=== PATIENT | male | born 1960 | race Two or more races ===

== ENCOUNTER 2018-07-28 17:48 | Inpatient (IN) | payer MEDICARE, MEDICAID ==
[~2018-07-28] VITALS: Ht 167.6 cm; Wt 77.1 kg
[2018-07-28] MEDS ORDERED: CLOZ100T32 PO (18:14)
--- NOTE | 2018-07-28 18:17 | NUR ---
hospital dinner tray provided for pt.
[2018-07-28] MEDS ORDERED: POTASSIUM CHLORIDE 20 MEQ TAB.PRT.SR ONE (18:27)
[2018-07-28] MEDS ORDERED: POTASSIUM CHLORIDE 20 MEQ TAB.PRT.SR PO ONE (18:30)
--- NOTE | 2018-07-28 18:50 | NUR ---
pt transfered to mhu in stable condition. pt finished tray with good apetite
[2018-07-28] MEDS ORDERED: MAGNESIUM HYDROXIDE 30 ML LIQUID UDC PO PRN (20:00)
[2018-07-28] MEDS ORDERED: LORAZEPAM 1 MG TABLET PO PRN (20:00)
[2018-07-28] MEDS ORDERED: TEMAZEPAM 7.5 MG CAPSULE PO PRN (20:00)
[2018-07-28 20:05] VITALS: BP 135/87
--- NOTE | 2018-07-28 21:00 | NUR ---
AT APPROX 1900, ADMITTED 58 YEARS OLD MALE TO [facility] ON A 5150 HOLD FOR GD. PATIENT WAS BROUGHT IN BY HIS COUSIN TO [facility] ER UNIT WHERE HE WAS PLACED ON HOLD AND MEDICALLY CLEARED. PER HOLD,PATIENT WAS AGITATED, NOT TAKING HIS MEDICATION X 2 WEEKS, PARANOID AND DELUSIONAL. HOLD ALSO STATED THAT HE WAS DISORGANIZED PARANOID AND INTERNALLY PREOCCUPIED. PATIENT HAS NO PLAN OF SELF-CARE. HOLD STARTED ON 07/28/18 AT 0045 AND WILL END ON 07/31/18 AT 0045. FACE TO FACE ASSESSMENT WAS DONE, ADVISEMENT WAS GIVEN TO PATIENT. PATIENT WAS CHECKED FOR CONTRABANDS. V/S WERE ALL WNL. UPON INTERVIEW, PATIENT NOTED A/O X 3. HE IS ABLE TO AMBULATE WITH STEADY GAIT AND ABLE TO MAKE HIS NEEDS KNOWN. HE IS NOTED GUARDED, RAMBLING SPEECH. HE STATED, "I AM HERE BECAUSE THEY SAY I CAN'T PROVIDED FOR MYSELF." HE ALSO STATED THAT HE DOES NOT LIVE WITH HIS COUSIN, BUT THAT HE LIVES WITH HIS PARENTS. HE DENIES SI.AH.VH.HI. HE DENIES TAKING ALCOHOL AND ILLEGAL DRUGS. HE DENIES SMOKING. HE DENIES HAVING ANY MEDICAL PROBLEMS. SKIN ASSESSMENT WAS SOMEWHAT LIMITED D/T PATIENT'S POOR COMPLIANT. HOWEVER, NO SKIN PROBLEMS WERE IDENTIFY AT THIS TIME. PATIENT WAS EXPLAINED UNIT RULES, ROOMMATE. PATIENT WAS REASSURED OF HIS SAFETY. HE WAS ENCOURAGED TO VERBALIZED HIS THOUGHT AND CONCERNS. PATIENT IS MONITORED CLOSELY FOR CHANGES IN HIS BEHAVIOR. HE IS UNDER THE CARE OF DR. DASILVA. PER PATIENT'S AUTHORIZATION, HIS BROTHER IN LAW WAS NOTIFY OR HIS ADMISSION TO MHU IN [facility].
[2018-07-29 00:29] VITALS: BP 135/87
[2018-07-29 07:21] LABS: CREATININE 1.2 mg/dL (0.6-1.3); POTASSIUM 3.5 mmol/L (3.5-5.1)
[2018-07-29 07:30] VITALS: BP 101/61
[2018-07-29 16:06] VITALS: BP 98/63
[2018-07-29] MEDS ORDERED: OXCARBAZEPINE 300 MG TABLET PO SCH (17:00)
[2018-07-29] MEDS: CLOZAPINE 25 MG TABLET PO SCH ×2 (18:04→20:37)
--- NOTE | 2018-07-29 19:50 | NUR ---
RECEIVED PATIENT IN HIS ROOM IN BED ASLEEP BUT EASILY AROUSABLE. HE IS NOTED CALM AND PLEASANT UPON APPROACHED. POOR HISTORIAN, POOR INSIGHT NOTED INTO THE REASON FOR HIS [facility]. V.S STABLE AT THIS TIME. PT WAS REASSURED FOR HIS SAFETY AND ENCOURAGE TO VERBALIZED FEELINGS. WILL CONTINUE TO MONITOR.
[2018-07-29 20:45] VITALS: BP 106/66
[2018-07-30 07:22] LABS: BASOPHILS % (AUTO) 0.3 % (0.0-2.0); EOSINOPHILS % (AUTO) 0.2 % (0.0-7.0); HEMATOCRIT 37.6 % (36.7-47.1); HEMOGLOBIN 12.9 g/dL (12.5-16.3); LYMPHOCYTES # (AUTO) 1.7 K/uL (20.0-40.0); LYMPHOCYTES % (AUTO) 33.3 % (20.5-51.5); MEAN CORPUSCULAR HGB CONC 34 g/dL (32.5-36.3); MEAN CORPUSCULAR VOLUME 81.4 fL (73.0-96.2); MONOCYTES # (AUTO) 0.5 K/uL (2.0-10.0); MONOCYTES % (AUTO) 9.9 % (0.0-11.0); NEUTROPHILS # (AUTO) 2.9 K/uL (1.8-8.9); NEUTROPHILS % (AUTO) 56.3 % (38.5-71.5); PLATELET COUNT (AUTO) 204 K/uL (152-348); RED BLOOD CELL COUNT(AUTO) 4.62 MIL/uL (4.06-5.63); WHITE BLOOD COUNT (AUTO) 5.1 K/uL (3.6-10.2)
[2018-07-30 07:30] VITALS: BP 119/85
[2018-07-30] MEDS: CLOZAPINE 25 MG TABLET PO SCH ×3 (09:46→20:22)
--- NOTE | 2018-07-30 11:29 | NUR ---
Initial Discharge Instructions: Patient has been living with his cousin for the past 6 months [[address], [place] [address]; [phone]]. Per pt, he was living at a [facility] prior to coming to the hospital. Spoke with pt's cousin, Karyna ([phone]) and Juan R ([phone]) who state they are willing to have patient return back home with them when the patient is ready for discharge. SW will continue to collaborate with pt, family, and MD regarding most appropriate discharge plans for this patient. SW will form a safe and proper discharge plan.
[2018-07-30] MEDS: MAG HYDROX/AL HYDROX/SIMETH 30 ML LIQUID UDC PO PRN ×2 (12:18→23:56)
[2018-07-30 15:00] VITALS: BP 116/53
[2018-07-30 20:36] VITALS: BP 118/67
--- NOTE | 2018-07-31 06:04 | NUR ---
GPS: REMAIN CALM AND COOPERATIVE WITH MEDICATIONS AND CARE. TOOK SHOWERED THIS MORNING. C/O ABDOMINAL DISCOMFORT LAST NIGHT.MAALOX 30 ML PO GIVEN @ 23:56 PM AND EFFECTIVE. SLEPT 7.5 HRS THROUGH THE NIGHT. RESTING IN BED COMFORTABLY. NO AGGRESSIVE BEHAVIOR NOTED. CONTINUE MONITORING FOR SAFETY.
[2018-07-31 08:06] VITALS: BP 131/91
[2018-07-31 08:20] LABS: BASOPHILS % (AUTO) 0.3 % (0.0-2.0); EOSINOPHILS % (AUTO) 0.1 % (0.0-7.0); HEMOGLOBIN 12.7 g/dL (12.5-16.3); LYMPHOCYTES # (AUTO) 1.7 K/uL (20.0-40.0); LYMPHOCYTES % (AUTO) 36.1 % (20.5-51.5); MEAN CORPUSCULAR HEMOGLOBIN 28.1 uug (23.8-33.4); MEAN CORPUSCULAR HGB CONC 34 g/dL (32.5-36.3); MEAN CORPUSCULAR VOLUME 81.9 fL (73.0-96.2); MONOCYTES # (AUTO) 0.5 K/uL (2.0-10.0); MONOCYTES % (AUTO) 10.4 % (0.0-11.0); NEUTROPHILS # (AUTO) 2.5 K/uL (1.8-8.9); NEUTROPHILS % (AUTO) 53.1 % (38.5-71.5); PLATELET COUNT (AUTO) 205 K/uL (152-348); RED BLOOD CELL COUNT(AUTO) 4.52 MIL/uL (4.06-5.63); WHITE BLOOD COUNT (AUTO) 4.7 K/uL (3.6-10.2)
[2018-07-31] MEDS: CLOZAPINE 25 MG TABLET PO SCH ×3 (08:57→20:14)
[2018-07-31 15:58] VITALS: BP 115/71
[2018-07-31] MEDS ORDERED: LORAZEPAM 0.5 MG TABLET PO PRN (16:00)
[2018-07-31 20:00] VITALS: BP 109/74
--- NOTE | 2018-07-31 22:00 | NUR ---
PATIENT PRESENTS CALM AND COOPERATIVE WITH MEDICATION REGIMENT. NOTED WITHDRAWN, LOW MOOD, BLUNTED AFFECT. PT WAS ASSESSED FOR SAFETY, ENCOURAGE TO VERBALIZED FEELINGS. V/S STABLE. WBC WNL. WILL CONTINUE TO MONITOR
[2018-08-01] MEDS: PANTOPRAZOLE SODIUM 40 MG TABLET.DR PO SCH (06:35)
[2018-08-01 06:39] LABS: BASOPHILS % (AUTO) 0.1 % (0.0-2.0); EOSINOPHILS % (AUTO) 0.2 % (0.0-7.0); HEMATOCRIT 37.6 % (36.7-47.1); HEMOGLOBIN 13.2 g/dL (12.5-16.3); MEAN CORPUSCULAR HEMOGLOBIN 28.6 uug (23.8-33.4); MEAN CORPUSCULAR HGB CONC 35 g/dL (32.5-36.3); MEAN CORPUSCULAR VOLUME 81.7 fL (73.0-96.2); MONOCYTES # (AUTO) 0.4 K/uL (2.0-10.0); MONOCYTES % (AUTO) 9.1 % (0.0-11.0); NEUTROPHILS # (AUTO) 2.5 K/uL (1.8-8.9); NEUTROPHILS % (AUTO) 50.6 % (38.5-71.5); PLATELET COUNT (AUTO) 215 K/uL (152-348); WHITE BLOOD COUNT (AUTO) 4.9 K/uL (3.6-10.2)
[2018-08-01 07:30] VITALS: BP 131/91
[2018-08-01] MEDS: CLOZAPINE 25 MG TABLET PO SCH ×3 (09:02→20:12)
[2018-08-01 15:53] VITALS: BP 126/74
[2018-08-01 20:00] VITALS: BP 100/65
--- NOTE | 2018-08-01 21:30 | NUR ---
RECEIVED PATIENT IN BED WITH SHEETS PULLED OVER THE HEAD.HE WAS HOWEVER PLEASANT UPON APPROACH.NOTED WITH LOW MOOD AND BLUNTED EFFECT.ALSO RAMBLING BUT WHEN ASKED WHAT HE'S TALKING ABOUT HE SAYS 'NOTHING'.HE TOOK HIS MEDS.HE DENIES PAIN OR DISCOMFORT. WILL CONTINUE TO MONITOR.
[2018-08-02] MEDS: PANTOPRAZOLE SODIUM 40 MG TABLET.DR PO SCH (06:37)
--- NOTE | 2018-08-02 06:49 | NUR ---
PATIENT HAD A GOOD NIGHT SLEEP.SLEPT APPROX.9;30HRS.AM MEDS TAKEN.
[2018-08-02 07:04] LABS: BASOPHILS % (AUTO) 0.5 % (0.0-2.0); EOSINOPHILS % (AUTO) 0.1 % (0.0-7.0); HEMATOCRIT 37.5 % (36.7-47.1); HEMOGLOBIN 13.2 g/dL (12.5-16.3); LYMPHOCYTES # (AUTO) 1.8 K/uL (20.0-40.0); LYMPHOCYTES % (AUTO) 37.3 % (20.5-51.5); MEAN CORPUSCULAR HEMOGLOBIN 28.4 uug (23.8-33.4); MEAN CORPUSCULAR HGB CONC 35 g/dL (32.5-36.3); MEAN CORPUSCULAR VOLUME 80.4 fL (73.0-96.2); MONOCYTES # (AUTO) 0.5 K/uL (2.0-10.0); MONOCYTES % (AUTO) 9.5 % (0.0-11.0); NEUTROPHILS # (AUTO) 2.6 K/uL (1.8-8.9); NEUTROPHILS % (AUTO) 52.6 % (38.5-71.5); PLATELET COUNT (AUTO) 218 K/uL (152-348); RED BLOOD CELL COUNT(AUTO) 4.67 MIL/uL (4.06-5.63); WHITE BLOOD COUNT (AUTO) 4.9 K/uL (3.6-10.2)
[2018-08-02 07:48] VITALS: BP 104/63
[2018-08-02] MEDS: CLOZAPINE 25 MG TABLET PO SCH ×2 (08:13→16:40)
[2018-08-02 16:59] VITALS: BP 103/64
[2018-08-02 20:17] VITALS: BP 138/78
[2018-08-02] MEDS ORDERED: CLOZAPINE 25 MG TABLET PO SCH (21:00)
--- NOTE | 2018-08-03 05:51 | NUR ---
Received Pt in bed sleeping, arouses easily. A+Ox3, compliant with medications, cooperative with staff direction. Denies SI/HI and denies AH/VH, but appears internally preoccupied. Guarded with personal information, gives minimal disclosure, presents with constricted/blunted affect. Pt is isolative, seclusive to his room, and withdrawn to himself. Denies SI/HI/AH/VH. Refused AM shower. VS stable, denies pain, in no acute physical distress.
[2018-08-03] MEDS: PANTOPRAZOLE SODIUM 40 MG TABLET.DR PO SCH (06:17)
[2018-08-03 07:15] LABS: BASOPHILS % (AUTO) 0.3 % (0.0-2.0); EOSINOPHILS % (AUTO) 0.1 % (0.0-7.0); HEMATOCRIT 39.1 % (36.7-47.1); HEMOGLOBIN 13.6 g/dL (12.5-16.3); LYMPHOCYTES # (AUTO) 1.9 K/uL (20.0-40.0); LYMPHOCYTES % (AUTO) 34.7 % (20.5-51.5); MEAN CORPUSCULAR HEMOGLOBIN 28.2 uug (23.8-33.4); MEAN CORPUSCULAR HGB CONC 35 g/dL (32.5-36.3); MEAN CORPUSCULAR VOLUME 81.3 fL (73.0-96.2); MONOCYTES # (AUTO) 0.5 K/uL (2.0-10.0); MONOCYTES % (AUTO) 9.2 % (0.0-11.0); NEUTROPHILS % (AUTO) 55.7 % (38.5-71.5); PLATELET COUNT (AUTO) 233 K/uL (152-348); RED BLOOD CELL COUNT(AUTO) 4.81 MIL/uL (4.06-5.63); WHITE BLOOD COUNT (AUTO) 5.4 K/uL (3.6-10.2)
[2018-08-03 07:30] VITALS: BP 123/74
[2018-08-03] MEDS: CLOZAPINE 25 MG TABLET PO SCH ×2 (08:48→17:05)
--- NOTE | 2018-08-03 13:37 | NUR ---
Discharge planning: dining service worker called and spoke with patient cousin, Karyna [[phone]], regarding conservatorship paperwork. Per Karyna, she states she has probate conservatorship, but cannot locate the paperwork to fax. dining service worker explained that having the paperwork is important as it is a legal document and gives her the right to make decisions on behalf of patient. Karyna was accepting of information and states she will try and find it.
[2018-08-03 16:00] VITALS: BP 145/97
--- NOTE | 2018-08-03 19:30 | NUR ---
Received Pt in chair, sitting near nurses' station. A+Ox3, compliant with medications, cooperative with staff direction. Denies SI/HI and denies AH/VH, but appears internally preoccupied by talking to self, and bizzare behavior. Presents with constricted/blunted affect. Pt is visible on unit but withdrawn to himself. Endorses AH. V/S stable, denies pain, in no acute physical distress. RN to continue to monitor for safety.
[2018-08-03 20:10] VITALS: BP 130/97
[2018-08-03] MEDS ORDERED: CLOZAPINE 25 MG TABLET PO SCH (21:00)
[2018-08-04] MEDS: PANTOPRAZOLE SODIUM 40 MG TABLET.DR PO SCH (06:06)
[2018-08-04 07:30] VITALS: BP 129/91
[2018-08-04 07:34] LABS: BASOPHILS % (AUTO) 0.3 % (0.0-2.0); EOSINOPHILS % (AUTO) 0.3 % (0.0-7.0); HEMOGLOBIN 13.3 g/dL (12.5-16.3); LYMPHOCYTES # (AUTO) 1.8 K/uL (20.0-40.0); LYMPHOCYTES % (AUTO) 38.1 % (20.5-51.5); MEAN CORPUSCULAR HEMOGLOBIN 28.1 uug (23.8-33.4); MEAN CORPUSCULAR HGB CONC 35 g/dL (32.5-36.3); MONOCYTES # (AUTO) 0.5 K/uL (2.0-10.0); MONOCYTES % (AUTO) 11.2 % (0.0-11.0); NEUTROPHILS # (AUTO) 2.3 K/uL (1.8-8.9); NEUTROPHILS % (AUTO) 50.1 % (38.5-71.5); PLATELET COUNT (AUTO) 232 K/uL (152-348); RED BLOOD CELL COUNT(AUTO) 4.75 MIL/uL (4.06-5.63); WHITE BLOOD COUNT (AUTO) 4.7 K/uL (3.6-10.2)
[2018-08-04] MEDS: CLOZAPINE 25 MG TABLET PO SCH ×3 (08:44→20:04)
--- NOTE | 2018-08-04 12:07 | NUR ---
Activity group note: Patients were asked to answer the question of "What is one thing you would change about yourself and why? Subjective: "Cleaning my ears changed me" Objective: Patient sat in group and appeared to be responding to internal stimuli. Patient witnessed to talk to self. Assessment: Patient needs help with boundary setting and staying on topic. Plan: Encourage group attendance as scheduled. sawmill production worker will help patient to control inhibitions when talking to self by providing patient with appropriate coping skills.
[2018-08-04 16:00] VITALS: BP 122/88
[2018-08-04 20:00] VITALS: BP 148/95
[2018-08-05] MEDS: PANTOPRAZOLE SODIUM 40 MG TABLET.DR PO SCH (06:17)
[2018-08-05 07:30] VITALS: BP 118/85
[2018-08-05] MEDS: CLOZAPINE 25 MG TABLET PO SCH ×3 (08:51→21:06)
[2018-08-05 09:47] LABS: BASOPHILS % (AUTO) 0.6 % (0.0-2.0); EOSINOPHILS % (AUTO) 0.3 % (0.0-7.0); HEMATOCRIT 39.3 % (36.7-47.1); HEMOGLOBIN 13.6 g/dL (12.5-16.3); LYMPHOCYTES # (AUTO) 1.1 K/uL (20.0-40.0); LYMPHOCYTES % (AUTO) 33.1 % (20.5-51.5); MEAN CORPUSCULAR HEMOGLOBIN 28.2 uug (23.8-33.4); MEAN CORPUSCULAR HGB CONC 35 g/dL (32.5-36.3); MEAN CORPUSCULAR VOLUME 81.2 fL (73.0-96.2); MONOCYTES # (AUTO) 0.4 K/uL (2.0-10.0); MONOCYTES % (AUTO) 11.5 % (0.0-11.0); NEUTROPHILS # (AUTO) 1.8 K/uL (1.8-8.9); NEUTROPHILS % (AUTO) 54.5 % (38.5-71.5); PLATELET COUNT (AUTO) 232 K/uL (152-348); RED BLOOD CELL COUNT(AUTO) 4.84 MIL/uL (4.06-5.63); WHITE BLOOD COUNT (AUTO) 3.4 K/uL (3.6-10.2)
--- NOTE | 2018-08-05 13:53 | NUR ---
Firearms Report: ANIL completed and submitted [employer] report for 5250 GD certification.
--- NOTE | 2018-08-05 15:08 | NUR ---
Gps/Yarn Salvager- Attending his group therapy, participating fairly well in his activities. Compliant with medications, noted to be responding to to internal stimuli, noted mumbling from time to time.No aggressive behavior noted , making his needs known to the staff.
[2018-08-05 16:00] VITALS: BP 111/75
[2018-08-05 20:00] VITALS: BP 120/81
[2018-08-06] MEDS: PANTOPRAZOLE SODIUM 40 MG TABLET.DR PO SCH (06:43)
[2018-08-06 07:02] LABS: BASOPHILS % (AUTO) 0.3 % (0.0-2.0); EOSINOPHILS % (AUTO) 0.2 % (0.0-7.0); HEMATOCRIT 37.4 % (36.7-47.1); HEMOGLOBIN 13.2 g/dL (12.5-16.3); LYMPHOCYTES # (AUTO) 1.8 K/uL (20.0-40.0); LYMPHOCYTES % (AUTO) 42.1 % (20.5-51.5); MEAN CORPUSCULAR HEMOGLOBIN 28.4 uug (23.8-33.4); MEAN CORPUSCULAR HGB CONC 35 g/dL (32.5-36.3); MEAN CORPUSCULAR VOLUME 80.4 fL (73.0-96.2); MONOCYTES # (AUTO) 0.6 K/uL (2.0-10.0); MONOCYTES % (AUTO) 13.4 % (0.0-11.0); NEUTROPHILS # (AUTO) 1.9 K/uL (1.8-8.9); PLATELET COUNT (AUTO) 230 K/uL (152-348); RED BLOOD CELL COUNT(AUTO) 4.65 MIL/uL (4.06-5.63); WHITE BLOOD COUNT (AUTO) 4.4 K/uL (3.6-10.2)
[2018-08-06 07:30] VITALS: BP 101/65
[2018-08-06] MEDS: CLOZAPINE 25 MG TABLET PO SCH ×3 (08:23→21:15)
[2018-08-06 16:41] VITALS: BP 107/61
[2018-08-06 20:18] VITALS: BP 114/73
--- NOTE | 2018-08-06 22:30 | NUR ---
RECEIVED PATIENT IN BED WITH SHEETS PULLED ALL THE WAY OVER HIS HEAD.HE WAS HOWEVER PLEASANT UPON APPROACH. NOTED LOW MOOD AND BLUNTED AFFECT.TOOK HIS MEDS BUT WOULD BE HEARD OCCASIONALLY TALKING TO HIMSELF.DENIES PAIN OR DISCOMFORT. WILL CONTINUE WITH MONITORING
[2018-08-07] MEDS: PANTOPRAZOLE SODIUM 40 MG TABLET.DR PO SCH (06:39)
--- NOTE | 2018-08-07 06:45 | NUR ---
SLEPT APPROX.6;30HRS.TOOK ALL MEDS.HOWEVER REFUSED SHOWERS
[2018-08-07 07:10] LABS: BASOPHILS % (AUTO) 0.2 % (0.0-2.0); EOSINOPHILS % (AUTO) 0.2 % (0.0-7.0); HEMATOCRIT 37.4 % (36.7-47.1); HEMOGLOBIN 13.4 g/dL (12.5-16.3); LYMPHOCYTES # (AUTO) 1.8 K/uL (20.0-40.0); LYMPHOCYTES % (AUTO) 50.2 % (20.5-51.5); MEAN CORPUSCULAR HEMOGLOBIN 28.5 uug (23.8-33.4); MEAN CORPUSCULAR HGB CONC 36 g/dL (32.5-36.3); MEAN CORPUSCULAR VOLUME 79.5 fL (73.0-96.2); MONOCYTES # (AUTO) 0.4 K/uL (2.0-10.0); MONOCYTES % (AUTO) 10.6 % (0.0-11.0); NEUTROPHILS # (AUTO) 1.4 K/uL (1.8-8.9); NEUTROPHILS % (AUTO) 38.8 % (38.5-71.5); PLATELET COUNT (AUTO) 247 K/uL (152-348); WHITE BLOOD COUNT (AUTO) 3.6 K/uL (3.6-10.2)
[2018-08-07 07:30] VITALS: BP 113/73
[2018-08-07] MEDS: CLOZAPINE 25 MG TABLET PO SCH ×3 (09:55→22:08)
[2018-08-07 16:00] VITALS: BP 122/74
[2018-08-07 20:00] VITALS: BP 127/89
[2018-08-08] MEDS: PANTOPRAZOLE SODIUM 40 MG TABLET.DR PO SCH (06:14)
--- NOTE | 2018-08-08 06:36 | NUR ---
PATIENT COMPLIANT WITH MEDICATIONS. NO BEHAVIORAL PROBLEMS NOTED DURING THE SHIFT. SLEPT FOR 7HRS.
[2018-08-08 07:07] LABS: BASOPHILS % (AUTO) 0.2 % (0.0-2.0); EOSINOPHILS % (AUTO) 0.1 % (0.0-7.0); HEMATOCRIT 35.1 % (36.7-47.1); HEMOGLOBIN 12.4 g/dL (12.5-16.3); LYMPHOCYTES # (AUTO) 1.7 K/uL (20.0-40.0); LYMPHOCYTES % (AUTO) 26.4 % (20.5-51.5); MEAN CORPUSCULAR HEMOGLOBIN 28.2 uug (23.8-33.4); MEAN CORPUSCULAR HGB CONC 35 g/dL (32.5-36.3); MEAN CORPUSCULAR VOLUME 79.8 fL (73.0-96.2); MONOCYTES # (AUTO) 0.6 K/uL (2.0-10.0); MONOCYTES % (AUTO) 8.8 % (0.0-11.0); NEUTROPHILS # (AUTO) 4.1 K/uL (1.8-8.9); NEUTROPHILS % (AUTO) 64.5 % (38.5-71.5); PLATELET COUNT (AUTO) 236 K/uL (152-348); RED BLOOD CELL COUNT(AUTO) 4.39 MIL/uL (4.06-5.63); WHITE BLOOD COUNT (AUTO) 6.3 K/uL (3.6-10.2)
[2018-08-08 07:14] LABS: CREATININE 1.1 mg/dL (0.6-1.3); POTASSIUM 3.7 mmol/L (3.5-5.1)
[2018-08-08] MEDS: CLOZAPINE 25 MG TABLET PO SCH ×3 (08:20→20:56)
[2018-08-08 08:30] VITALS: BP 111/73
[2018-08-08] MEDS: ACETAMINOPHEN 325 MG TABLET PO PRN ×2 (15:11→20:56)
[2018-08-08 15:16] VITALS: BP 107/78
--- NOTE | 2018-08-08 16:00 | NUR ---
Gps/Endless Steamer Tender- Attended group therapy, kept asking for diet soda , as well as food,sandwiches. Complained of indigestion, offered mylanta refused.Compliant with his routine medication.
--- NOTE | 2018-08-08 19:45 | NUR ---
RECEIVED PATIENT IN ACTIVITY ROOM WATCHING TELEVISION, PATIENT AWAKE, COMPLAIN OF HEADACHES, WILL MEDICATE FOR PAIN, NO BEHAVIORAL PROBLEM NOTED, COOPERATIVE WITH CARE AT THIS TIME. CONT TO MONITOR.
[2018-08-08 20:00] VITALS: BP 110/72
[2018-08-09] MEDS: PANTOPRAZOLE SODIUM 40 MG TABLET.DR PO SCH (06:01)
--- NOTE | 2018-08-09 06:17 | NUR ---
Patient awake, remains cooperative with care, slept for 7.30 hrs, no further complains of pain at this time. cont to monitor.
[2018-08-09 07:30] VITALS: BP 111/62
[2018-08-09] MEDS: CLOZAPINE 25 MG TABLET PO SCH ×3 (08:40→20:32)
[2018-08-09 08:46] LABS: HEMOGLOBIN 12.7 g/dL (12.5-16.3); LYMPHOCYTES # (AUTO) 1.7 K/uL (20.0-40.0); MONOCYTES # (AUTO) 0.4 K/uL (2.0-10.0); NEUTROPHILS # (AUTO) 1.5 K/uL (1.8-8.9)
[2018-08-09 08:59] LABS: BASOPHILS % (AUTO) 0.1 % (0.0-2.0); EOSINOPHILS % (AUTO) 0.2 % (0.0-7.0); HEMATOCRIT 35.5 % (36.7-47.1); LYMPHOCYTES % (AUTO) 46.9 % (20.5-51.5); MEAN CORPUSCULAR HEMOGLOBIN 28.5 uug (23.8-33.4); MEAN CORPUSCULAR HGB CONC 36 g/dL (32.5-36.3); MEAN CORPUSCULAR VOLUME 79.7 fL (73.0-96.2); MONOCYTES % (AUTO) 11.3 % (0.0-11.0); NEUTROPHILS % (AUTO) 41.5 % (38.5-71.5); PLATELET COUNT (AUTO) 242 K/uL (152-348); RED BLOOD CELL COUNT(AUTO) 4.45 MIL/uL (4.06-5.63); WHITE BLOOD COUNT (AUTO) 3.7 K/uL (3.6-10.2)
--- NOTE | 2018-08-09 12:38 | NUR ---
Discharge Planning: spring salvage worker discussed discharge plan with Dr. Callahan. Per , a discharge is scheduled tentatively for Thursday pending hematology consult. spring salvage worker followed up with patient couKaryna talbert [[phone]] regarding outpatient psychitrsit follow-up. Per Karyna, patient receives mental health care at [facility] [[address], [place] [address]; ]. spring salvage worker attempted to call facility to get outpatient psychiatrist name and make a follow-up appointment but facility is closed in observance of holiday. spring salvage worker to follow-up tomorrow.
[2018-08-09 15:16] VITALS: BP 141/76
--- NOTE | 2018-08-09 16:42 | NUR ---
Group Note: GOAL Patient will actively participate in the group discussion of the day or listen respectfully to other peers responses. INTERVENTION Social Work Rolling Machine Tender invited patient to participate in a group discussion held from 2:30-3:15 pm in the activities room. TRAVIS James and Social Work Rolling Machine Tender Lyndsay facilitated a group discussion regarding life experiences and valuable life lessons. RESPONSE Patient was able to share some advice as well as some life struggles he has endured. Patient was very pleasant and remained cooperative throughout activity. PLAN Patient to attend the next group discussion.
[2018-08-09 20:00] VITALS: BP 136/68
[2018-08-10] MEDS: PANTOPRAZOLE SODIUM 40 MG TABLET.DR PO SCH (06:16)
[2018-08-10 07:24] LABS: BASOPHILS % (AUTO) 0.3 % (0.0-2.0); EOSINOPHILS % (AUTO) 0.2 % (0.0-7.0); HEMATOCRIT 36.9 % (36.7-47.1); HEMOGLOBIN 12.9 g/dL (12.5-16.3); LYMPHOCYTES # (AUTO) 1.8 K/uL (20.0-40.0); LYMPHOCYTES % (AUTO) 47.2 % (20.5-51.5); MEAN CORPUSCULAR HEMOGLOBIN 28.4 uug (23.8-33.4); MEAN CORPUSCULAR HGB CONC 35 g/dL (32.5-36.3); MEAN CORPUSCULAR VOLUME 81.2 fL (73.0-96.2); MONOCYTES # (AUTO) 0.4 K/uL (2.0-10.0); NEUTROPHILS # (AUTO) 1.6 K/uL (1.8-8.9); NEUTROPHILS % (AUTO) 42.3 % (38.5-71.5); PLATELET COUNT (AUTO) 218 K/uL (152-348); RED BLOOD CELL COUNT(AUTO) 4.55 MIL/uL (4.06-5.63); WHITE BLOOD COUNT (AUTO) 3.7 K/uL (3.6-10.2)
[2018-08-10 07:30] VITALS: BP 136/95
[2018-08-10 07:52] LABS: THYROID STIMULATING HORMONE 0.767 mIU/mL (0.358-3.740)
[2018-08-10 08:18] LABS: BILIRUBIN,DIRECT 0.1 mg/dL (0.0-0.2); BILIRUBIN,TOTAL 0.3 mg/dL (0.2-1.0); TOTAL PROTEIN, SERUM 6.6 g/dL (6.4-8.2)
[2018-08-10 08:20] LABS: *RHEUMATOID FACTOR SCREEN NEGATIVE (NEGATIVE)
--- NOTE | 2018-08-10 10:21 | NUR ---
Discharge Planning Note: ANIL made a follow-up call to [facility] ([phone]) to schedule an aftercare appointment for the patient. Spoke with Melodie at the front end specialist, and made an appointment for the patient with Clinician Alison Michael LCSW on August 12, 2018 @8am. Per Melodei, the patient is to attend this appointment, and then will be scheduled with a Psychiatrist after that. ANIL will continue to follow-up as needed.
[2018-08-10] MEDS: CLOZAPINE 25 MG TABLET PO SCH ×2 (11:00→17:59)
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
[2018-08-10 15:36] VITALS: BP 107/70
[2018-08-10 20:20] VITALS: BP 127/70
[2018-08-10] MEDS ORDERED: CLOZAPINE 100 MG TABLET PO SCH (21:00)
[2018-08-10] MEDS ORDERED: CLOZAPINE 25 MG TABLET PO SCH (21:00)
[2018-08-11] MEDS: PANTOPRAZOLE SODIUM 40 MG TABLET.DR PO SCH (06:09)
[2018-08-11 07:30] VITALS: BP 123/82
[2018-08-11 07:32] LABS: BASOPHILS % (AUTO) 0.2 % (0.0-2.0); EOSINOPHILS % (AUTO) 0.4 % (0.0-7.0); HEMATOCRIT 35.2 % (36.7-47.1); HEMOGLOBIN 12.4 g/dL (12.5-16.3); LYMPHOCYTES # (AUTO) 1.7 K/uL (20.0-40.0); LYMPHOCYTES % (AUTO) 42.5 % (20.5-51.5); MEAN CORPUSCULAR HEMOGLOBIN 28.3 uug (23.8-33.4); MEAN CORPUSCULAR HGB CONC 35 g/dL (32.5-36.3); MEAN CORPUSCULAR VOLUME 80.1 fL (73.0-96.2); MONOCYTES # (AUTO) 0.4 K/uL (2.0-10.0); MONOCYTES % (AUTO) 9.5 % (0.0-11.0); NEUTROPHILS # (AUTO) 1.9 K/uL (1.8-8.9); NEUTROPHILS % (AUTO) 47.4 % (38.5-71.5); PLATELET COUNT (AUTO) 214 K/uL (152-348)
[2018-08-11 08:09] LABS: *IMMUNOGLOBULIN G, SERUM 1093 mg/dL (700-1600); IMMUNOGLOBULIN A, SERUM 142 mg/dL (90-386); IMMUNOGLOBULIN M, SERUM 32 mg/dL (20-172)
[2018-08-11] MEDS: CLOZAPINE 25 MG TABLET PO SCH (08:53)
--- NOTE | 2018-08-11 09:05 | NUR ---
DC Note: Patient will be discharged to [facility] [Address: [address] [place] [id number]; ] via ambulance. Please arrange an ambulance for this patient. Spoke with CJ at the facility who states they are ready to accept the patient today. Spoke with patients Karyna benitez ([phone]) who is aware and agreeable with discharge plans. Patient is aware and agreeable with discharge plans. Patient will follow-up at the facility with Dr. Humphrey (Typewriter Aligner) and Dr. Callahan (Psychiatrist). For smoking cessation, patient was referred to [employer] 800-LUNGUSA and [employer] [phone]. Patient was encouraged to participate in a Nicotine Anonymous Telephone Meeting on Saturday, August 11, 2018 at 6:15pm (ph. [phone]; PIN [phone]). Addendum: 08/11/18 at 0907 by BEVERLEY TREJO UPDATED: CORRECTION, HOOP COILING MACHINE OPERATOR FOLLOWING PATIENT IS DR. REYES
[2018-08-11 13:08] LABS: A/G RATIO 1.4 (0.7-1.7); ALBUMIN 3.7 g/dL (2.9-4.4); ALPHA-1-GLOBULIN 0.2 g/dL (0.0-0.4); ALPHA-2-GLOBULIN 0.5 g/dL (0.4-1.0); BETA GLOBULIN 0.9 g/dL (0.7-1.3); GLOBULIN, TOTAL 2.6 g/dL (2.2-3.9); M-SPIKE Not Observed g/dL (Not Observed)
--- NOTE | 2018-08-11 13:30 | NUR ---
DISCHARGE PATIENT TO [facility] Spoke with patients Karyna benitez ([phone]) who is aware and agreeable with discharge plans. Patient is aware and agreeable with discharge plans. Patient will follow-up at the facility with Dr. Humphrey (Imaging System Administrator) and Dr. Callahan (Psychiatrist).
[2018-08-11 20:09] LABS: *ANTI-SCLERODERMA-70 AB <0.2 AI (0.0-0.9); *SJOGREN'S ANTI-SS-A <0.2 AI (0.0-0.9); *SJOGREN'S ANTI-SS-B <0.2 AI (0.0-0.9); *SMITH ANTIBODIES <0.2 AI (0.0-0.9); ANTI-DNA(DS) AB, QN <1 IU/mL (0-9)
== END 2018-08-11 13:00 | DRG 885 ==
LOC: ER 17:50 → GPS 18:30
PROVIDERS: ADMIT Psychiatry & Neurology Psychosomatic Medicine; ATTEND Internal Medicine
DX: F25.0 Schizoaffective disorder, bipolar type (principal); Z91.14 Patient's other noncompliance with medication regimen; D72.819 Decreased white blood cell count, unspecified; E16.2 Hypoglycemia, unspecified; F09 Unspecified mental disorder due to known physiological condition; I45.81 Long QT syndrome; E87.6 Hypokalemia
CPT/HCPCS: 36415; 71045; 76705; 82747; 82784; 84155; 84165; 84443; 85014; 85025; 85651; 86038; 86334; 86430; 93005; A4663

== ENCOUNTER 2018-10-12 21:05 | Inpatient (IN) | payer MEDICARE, MEDICAID ==
[~2018-10-12] VITALS: Ht 172.7 cm; Wt 83.0 kg
--- NOTE | 2018-10-12 21:33 | NUR ---
Dr. Houston at bedside for MSE.
--- NOTE | 2018-10-12 21:49 | NUR ---
Xray at bedside.
[2018-10-12 21:57] LABS: BASOPHILS % (AUTO) 0.5 % (0.0-2.0); EOSINOPHILS % (AUTO) 0.7 % (0.0-7.0); HEMATOCRIT 40.5 % (36.7-47.1); HEMOGLOBIN 13.8 g/dL (12.5-16.3); LYMPHOCYTES # (AUTO) 2.2 K/uL (20.0-40.0); LYMPHOCYTES % (AUTO) 42.9 % (20.5-51.5); MEAN CORPUSCULAR HEMOGLOBIN 27.8 uug (23.8-33.4); MEAN CORPUSCULAR HGB CONC 34 g/dL (32.5-36.3); MEAN CORPUSCULAR VOLUME 81.8 fL (73.0-96.2); MONOCYTES # (AUTO) 0.5 K/uL (2.0-10.0); MONOCYTES % (AUTO) 8.9 % (0.0-11.0); NEUTROPHILS # (AUTO) 2.4 K/uL (1.8-8.9); PLATELET COUNT (AUTO) 222 K/uL (152-348); RED BLOOD CELL COUNT(AUTO) 4.95 MIL/uL (4.06-5.63); WHITE BLOOD COUNT (AUTO) 5.1 K/uL (3.6-10.2)
[2018-10-12 22:02] LABS: *BILIRUBIN,URIN NEGATIVE (NEGATIVE); *BLOOD, URINE NEGATIVE (NEGATIVE); *CLARITY,URINE CLEAR (CLEAR); *COLOR,URINE YELLOW (YELLOW); *KETONES,URINE NEGATIVE (NEGATIVE); *UROBILINOGEN,URINE 0.2 E.U./dl (NORMAL); LEUKOCYTE ESTERASE ,URINE NEGATIVE (NEGATIVE); NITRITE, URINE NEGATIVE (NEGATIVE); UGLUCOSE NEGATIVE (NEGATIVE)
[2018-10-12] MEDS ORDERED: DIAZEPAM 5 MG TABLET ONE (22:04)
[2018-10-12] MEDS ORDERED: CYAN250014 PO (22:07)
[2018-10-12] MEDS ORDERED: ACET500C4 PO (22:07)
[2018-10-12] MEDS ORDERED: NA P133E RC (22:07)
[2018-10-12] MEDS ORDERED: BISA10SU12 RC (22:07)
[2018-10-12] MEDS ORDERED: CHOL100062 PO (22:07)
[2018-10-12] MEDS ORDERED: ACET325T53 PO (22:07)
[2018-10-12] MEDS ORDERED: CHOL10005 PO (22:07)
[2018-10-12] MEDS ORDERED: MAGN400O6 PO (22:07)
[2018-10-12] MEDS ORDERED: MAG355OR18 PO (22:07)
[2018-10-12] MEDS ORDERED: PANT40TA2 PO (22:07)
[2018-10-12 22:09] LABS: CARBON DIOXIDE 28 mmol/L (21-32); CHLORIDE 105 mmol/L (98-107); CREATININE 0.9 mg/dL (0.6-1.3); GLUCOSE 106 mg/dL (74-106); POTASSIUM 3.9 mmol/L (3.5-5.1); UREA NITROGEN, BLOOD 13 mg/dL (7-18)
[2018-10-12 22:13] LABS: ETHANOL < 3 MG/DL (0-0)
[2018-10-12 22:14] LABS: ALANINE AMINOTRANSFERASE 32 U/L (16-63); ALKALINE PHOSPHATASE 99 U/L (50-136); ASPARTATE AMINOTRANSFERASE 26 U/L (15-37); BILIRUBIN,DIRECT 0.1 mg/dL (0.0-0.2); BILIRUBIN,TOTAL 0.4 mg/dL (0.2-1.0)
[2018-10-12 22:14] LABS: *AMPHETAMINE, URINE NEGATIVE (NEGATIVE); *BARBITURATE, URINE NEGATIVE (NEGATIVE); *CANNABINOID, URINE NEGATIVE (NEGATIVE); *COCCAINE, URINE NEGATIVE (NEGATIVE); *OPIATE, URINE NEGATIVE (NEGATIVE); *PHENCYCLIDINE SCREEN,URINE NEGATIVE (NEGATIVE)
[2018-10-12] MEDS ORDERED: DIAZEPAM 2 MG TABLET PO ONE (22:15)
[2018-10-12 22:16] LABS: ACETAMINOPHEN < 2.0 ug/mL (10-30)
[2018-10-12 22:22] LABS: THYROID STIMULATING HORMONE 1.973 mIU/mL (0.358-3.740)
--- NOTE | 2018-10-12 23:13 | NUR ---
Report given to [facility].
[2018-10-12] MEDS ORDERED: LORAZEPAM 2 MG/1 ML VIAL ONE (23:24)
[2018-10-12] MEDS ORDERED: LORAZEPAM 2 MG/1 ML VIAL IM ONE (23:30)
[2018-10-12] MEDS ORDERED: CLOZ200T PO (23:35)
--- NOTE | 2018-10-12 23:54 | NUR ---
Pt not wanded. Per security, they don't have a scanner.
[2018-10-13] MEDS ORDERED: TEMAZEPAM 7.5 MG CAPSULE PO PRN
[2018-10-13] MEDS: LORAZEPAM 1 MG TABLET PO PRN ×4 (01:20→20:14)
--- NOTE | 2018-10-13 01:30 | NUR ---
AT APPROX 2355 ON 10/12 ADMITTED 58 YEAR OLD MALE TO [facility] ON A 5150 HOLD FOR GD UNDER THE CARE OF DR DASILVA. PATIENT RESIDES AT [facility]) PER HOLD, PATIENT WAS OBSERVED WITH INCREASED PARANOID AND DELUSIONS DESPITE MEDICATION ADJUSTMENT AND PT IS ALSO INTERFERENCE WITH HIS CARE WELL FOR THE RESIDENTS BY PROVIDING FOOD AND WATER TO RESIDENTS WHO ARE ON RESTRICTION, HE IS UNABLE TO BE REDIRECTED BY STAFF, CONTINUE TO PACE, TALKS TO HIMSELF AND EXPRESS RACIAL PARANOID. PT WAS ADMITTED INTO THIS FACILITY FORM 07/28/18 TO 08/11/18. PATIENT WAS MEDICALLY CLEARED AT [facility] ER. UPON ADMISSION, PATIENT WAS NOTED A/O X 3, HE WAS ABLE TO COOPERATE WITH THE ADMISSION PROCESS. HE IS NOTED TANGENTAL, FLIGHT OF IDEAS, HYPERVERBAL PRESSURED SPEECH EASILY IRRITABLE AND POOR INSIGHT AND JUDGMENT NOTED TO THE REASON FOR HIS ADMISSION TO MHU. DR DASILVA WAS NOTIFY OF PATIENT'S ADMISSION AND NEW ADMISSION PHONE ORDERS WERE OBTAINED. ATIVAN 1MG PO PRN WAS GIVEN FOR ANXIETY. SKIN NOTED WARM DRY AND INTACT. WILL CONTINUE TO MONITOR.
[2018-10-13 01:47] VITALS: BP 140/90
[2018-10-13] MEDS: ACETAMINOPHEN 325 MG TABLET PO PRN ×3 (05:43→15:36)
[2018-10-13 07:30] VITALS: BP 124/88
[2018-10-13] MEDS ORDERED: MAG HYDROX/AL HYDROX/SIMETH 30 ML LIQUID UDC PO PRN (11:00)
[2018-10-13] MEDS ORDERED: FLEET ENEMA 133 ML BOTTLE RC PRN (11:00)
[2018-10-13] MEDS ORDERED: ACETAMINOPHEN 500 MG PO PRN (11:00)
[2018-10-13] MEDS ORDERED: ACETAMINOPHEN 325 MG TABLET PO PRN (11:00)
[2018-10-13] MEDS ORDERED: BISACODYL 10 MG SUPP.RECT RC PRN (11:00)
[2018-10-13] MEDS ORDERED: MAGNESIUM HYDROXIDE 30 ML LIQUID UDC PO PRN ×2 (11:00)
[2018-10-13] MEDS: CLONAZEPAM 0.5 MG TABLET PO SCH ×2 (12:44→17:55)
[2018-10-13] MEDS: GABAPENTIN 300 MG CAPSULE PO SCH ×2 (12:44→17:54)
--- NOTE | 2018-10-13 14:28 | NUR ---
Process Group: Patients were asked to reflect and respond to the question "If you could change one things about yourself, what would it be and why?" Subjective: "..." Objective: Patient was unable to attend group. Patient observed having discussion/assessment with social work editorial internLyndsay. Assessment: Patient not a participant in group. Plan: Encourage group attendance as scheduled. facility maintenance worker will continue to encourage patient to interact with peers and engage in social activities.
[2018-10-13 16:00] VITALS: BP 123/92
[2018-10-13] MEDS: PANTOPRAZOLE SODIUM 40 MG TABLET.DR PO SCH (17:55)
[2018-10-13] MEDS: CLOZAPINE 25 MG TABLET PO SCH (17:56)
[2018-10-13 20:32] VITALS: BP 140/96
[2018-10-13] MEDS ORDERED: CLOZAPINE 100 MG TABLET PO SCH (21:00)
[2018-10-14] MEDS: LORAZEPAM 1 MG TABLET PO PRN (05:21)
[2018-10-14] MEDS: ACETAMINOPHEN 325 MG TABLET PO PRN ×3 (05:21→21:26)
[2018-10-14 07:30] VITALS: BP 125/91
[2018-10-14] MEDS: CYANOCOBALAMIN 1,000 MCG TABLET PO SCH (08:12)
[2018-10-14] MEDS: CLOZAPINE 25 MG TABLET PO SCH ×3 (08:12→16:25)
[2018-10-14] MEDS: CHOLECALCIFEROL 1,000 UNIT TABLET PO SCH (08:12)
[2018-10-14] MEDS: GABAPENTIN 300 MG CAPSULE PO SCH ×2 (08:12→13:19)
[2018-10-14] MEDS: CLONAZEPAM 0.5 MG TABLET PO SCH ×3 (08:13→16:24)
[2018-10-14] MEDS ORDERED: CHOLECALCIFEROL U PO SCH (09:00)
[2018-10-14] MEDS ORDERED: Medication Not On Formulary EA (Cyanocobalamin (Vitamin B-12) (Vitamin B12) 1,000 MCG) PO SCH (09:00)
[2018-10-14] MEDS ORDERED: [UNRECOGNIZED DRUG - OTHER] PO SCH (09:00)
--- NOTE | 2018-10-14 12:40 | NUR ---
Initial Discharge Instructions: The patient is a current resident of [facility] [[address] [place] [address] ; ]. Per patient, [facility]. cancer registry coordinator at [facility] confirmed that the pt. may return once ready for discharge. SW attempted to contact patient's cousin, Karyna Pina ([phone]) and left a message for a return call. SW Rug Shampooer will continue to collaborate with interdisciplinary team to ensure safe and proper discharge planning.
[2018-10-14 16:00] VITALS: BP 131/81
--- NOTE | 2018-10-14 16:00 | NUR ---
Gps/Behavioral Pediatrician- Gets needy,intrussive , kept asking for little things, anxious, tends to hang out by the nurses station. Encouraged participation in her group therapy.Needed limit setting.
[2018-10-14] MEDS: PANTOPRAZOLE SODIUM 40 MG TABLET.DR PO SCH (16:24)
[2018-10-14] MEDS: GABAPENTIN 400 MG CAPSULE PO SCH ×2 (16:25→20:31)
[2018-10-14] MEDS ORDERED: GABAPENTIN 300 MG CAPSULE PO SCH (17:00)
[2018-10-14 20:00] VITALS: BP 121/88
[2018-10-14] MEDS: CLOZAPINE 100 MG TABLET PO SCH (20:30)
[2018-10-14] MEDS: TEMAZEPAM 15 MG CAPSULE PO PRN (22:03)
[2018-10-15] MEDS: ACETAMINOPHEN 325 MG TABLET PO PRN ×3 (04:57→19:49)
[2018-10-15] MEDS: LORAZEPAM 1 MG TABLET PO PRN ×3 (05:40→20:42)
[2018-10-15 07:30] VITALS: BP 124/70
[2018-10-15] MEDS: GABAPENTIN 400 MG CAPSULE PO SCH ×4 (08:39→20:07)
[2018-10-15] MEDS: CYANOCOBALAMIN 1,000 MCG TABLET PO SCH (08:39)
[2018-10-15] MEDS: CHOLECALCIFEROL 1,000 UNIT TABLET PO SCH (08:39)
[2018-10-15] MEDS: CLONAZEPAM 0.5 MG TABLET PO SCH ×3 (08:39→16:43)
[2018-10-15] MEDS: CLOZAPINE 25 MG TABLET PO SCH ×3 (08:40→16:43)
[2018-10-15 16:00] VITALS: BP 139/88
[2018-10-15] MEDS: PANTOPRAZOLE SODIUM 40 MG TABLET.DR PO SCH (16:44)
--- NOTE | 2018-10-15 17:12 | NUR ---
Gps/Ampoule Filler- Patient remains intrusive, difficulty redirecting patient, needy, demanding behavior, kept coming to the Nursing station asking for simple needs. Patient claimed he needs stronger medications to keep his anxiety down. Instructed to continue participating in his group therapy.Offered prn as ordered.
--- NOTE | 2018-10-15 20:00 | NUR ---
RECEIVED PATIENT IN THE HALLWAY. HE IS NOTED A/O X 3 PACING THE HALLWAY. CONTINUE NEEDY, DEMANDING, MULTIPLE REQUESTS, ATTENTION SEEKER, INTRUSIVE AND HYPERVERBAL. PATIENT REQUIRES MULTIPLE REDIRECTIONS. HOWEVER, NO AGGRESSIVE/COMBATIVE BX IS NOTED AT THIS TIME. PATIENT WAS REASSURED FOR HIS SAFETY. V/S STABLE/ WILL CONTINUE TO MONITOR.
[2018-10-15] MEDS: CLOZAPINE 100 MG TABLET PO SCH (20:07)
[2018-10-15 20:26] VITALS: BP 118/74
[2018-10-15] MEDS ORDERED: GABAPENTIN 400 MG CAPSULE PO SCH (21:00)
[2018-10-15] MEDS: TEMAZEPAM 15 MG CAPSULE PO PRN (21:50)
[2018-10-16] MEDS: ACETAMINOPHEN 325 MG TABLET PO PRN ×4 (05:34→22:17)
[2018-10-16] MEDS: LORAZEPAM 1 MG TABLET PO PRN ×3 (05:34→22:38)
[2018-10-16 07:30] VITALS: BP 120/59
[2018-10-16] MEDS: CHOLECALCIFEROL 1,000 UNIT TABLET PO SCH (08:03)
[2018-10-16] MEDS: CYANOCOBALAMIN 1,000 MCG TABLET PO SCH (08:04)
[2018-10-16] MEDS: GABAPENTIN 400 MG CAPSULE PO SCH ×3 (08:04→17:00)
[2018-10-16] MEDS: CLOZAPINE 25 MG TABLET PO SCH ×3 (08:05→17:00)
[2018-10-16] MEDS ORDERED: OLANZAPINE 10 MG VIAL IM ONE ×2 (08:30→13:30)
[2018-10-16] MEDS ORDERED: LORAZEPAM 2 MG/1 ML VIAL IM ONE ×2 (08:30→13:30)
--- NOTE | 2018-10-16 08:30 | NUR ---
PT NOTED HIGHLY INTRUSIVE, NEEDY, DEMANDING, FREQUENTLY PACING UNIT HALLWAY. POOR IMPULSE CONTROL WHEN NEEDS ARE NOT IMMEDIATELY MET. PT MAKING MULTIPLE REQUESTS AND DEMANDS, PT THEN SLAMMED OPEN NURSING STATION DOOR STATING HE NEEDED PAPER. PROCEEDED TO GO INTO NURSES STATION AND BEGINS TOUCHING EQUIPMENT AND PAPERWORK. UNREDRECTABLE. STAFF ASKING HIM TO LEAVE AND THAT HE CANNOT BE IN NURSES STATION. PT IS COMBATIVE AND REFUSES TO LEAVE INSIDE NURSES STATION. STAFF WAS ABOUT TO CALL A ELIUD PAEZ WHEN PT DECIDED TO COME BACK OUT TO HALLWAY. CALLED DR. SHEPPARD WITH ORDER FOR ZYPREXA 10MG IM ATIVAN 2MG IM. ORDERED WILL CARRY OUT. SECURITY CALLED WELL.
[2018-10-16] MEDS: CLONAZEPAM 0.5 MG TABLET PO SCH ×3 (09:00→17:00)
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
[2018-10-16 15:21] VITALS: BP 124/73
[2018-10-16] MEDS: PANTOPRAZOLE SODIUM 40 MG TABLET.DR PO SCH (17:00)
[2018-10-16] MEDS: OLANZAPINE 5 MG TABLET PO SCH (17:00)
[2018-10-16 20:00] VITALS: BP 131/77
[2018-10-16] MEDS: CLOZAPINE 100 MG TABLET PO SCH ×2 (20:00→20:50)
--- NOTE | 2018-10-16 20:00 | NUR ---
RECEIVED PATIENT IN THE HIS ROOM ASLEEP BUT EASILY AROUSABLE. HE IS NOTED A/O X 2. EASILY IRRITABLE, NEEDY, DEMANDING, ATTENTION SEEKER. PATIENT IS NOW ON 1:1 SUPERVISION FOR PRECAUTION D/T WONDERING, NEEDY, INTRUSIVE AND UNREDIRECTABLE. PATIENT DENIES SI. DENIES HEARING VOICES; HOWEVER, PATIENT IS RESPONDING TO INTERNAL STIMULI. V/S STABLE AT THIS TIME. PT WAS REASSURED FOR HIS SAFETY.
[2018-10-16] MEDS ORDERED: GABAPENTIN 100 MG CAPSULE ONE (20:25)
[2018-10-16] MEDS ORDERED: GABAPENTIN 400 MG CAPSULE ONE (20:26)
[2018-10-16] MEDS ORDERED: GABAPENTIN 400 MG CAPSULE PO SCH (21:00)
--- NOTE | 2018-10-16 22:38 | NUR ---
PATIENT NOTED PACING THE HALLWAY, EASILY IRRITABLE, NEEDY. TYLENOL 650 MG PO PRN WAS GIVEN APPROX 30 MINUTES EARLIER D/T COMPLAINS OF GENERALIZED MODERATE PAIN. PT CONTINUE ON 1:1 SUPERVISION FOR SAFETY. ATIVAN 1MG PO PRN WAS GIVEN FOR ANXIETY. PT REMAINS COMPLAINT WITH MEDICATION REGIMENT AT THIS TIME. V/S STABLE. WILL CONTINUE TO MONITOR.
[2018-10-17] MEDS: ACETAMINOPHEN 325 MG TABLET PO PRN ×3 (06:20→21:08)
[2018-10-17] MEDS: LORAZEPAM 1 MG TABLET PO PRN ×3 (06:38→21:28)
[2018-10-17] MEDS: OLANZAPINE 5 MG TABLET PO SCH ×2 (08:04→16:00)
[2018-10-17] MEDS: CYANOCOBALAMIN 1,000 MCG TABLET PO SCH (08:04)
[2018-10-17] MEDS: CLONAZEPAM 0.5 MG TABLET PO SCH ×3 (08:04→16:00)
[2018-10-17] MEDS: CHOLECALCIFEROL 1,000 UNIT TABLET PO SCH (08:04)
[2018-10-17] MEDS: CLOZAPINE 25 MG TABLET PO SCH ×3 (08:04→16:00)
[2018-10-17] MEDS: GABAPENTIN 400 MG CAPSULE PO SCH ×3 (08:04→16:00)
[2018-10-17 08:30] VITALS: BP 121/90
[2018-10-17 15:55] VITALS: BP 117/84
[2018-10-17] MEDS: MAG HYDROX/AL HYDROX/SIMETH 30 ML LIQUID UDC PO PRN (15:59)
[2018-10-17] MEDS: PANTOPRAZOLE SODIUM 40 MG TABLET.DR PO SCH (16:00)
[2018-10-17] MEDS: GABAPENTIN 100 MG CAPSULE PO SCH (20:00)
[2018-10-17] MEDS: CLOZAPINE 100 MG TABLET PO SCH (20:00)
--- NOTE | 2018-10-17 20:00 | NUR ---
RECEIVED PATIENT PACING THE HALLWAY. HE CONTINUE ON 1:1 SUPERVISION FOR SAFETY. PATIENT IS NOTED A/O X 3. EASILY IRRITABLE, ANXIOUS, RESTLESS, NEEDY, ATTENTION SEEKER, INTRUSIVE AND DEMANDING. PATIENT REQUIRES MULTIPLE REDIRECTION. V/S STABLE. PT IS REASSURED FOR HIS SAFETY.
[2018-10-17 20:25] VITALS: BP 126/86
[2018-10-17] MEDS: TEMAZEPAM 15 MG CAPSULE PO PRN (22:43)
[2018-10-18] MEDS: LORAZEPAM 1 MG TABLET PO PRN ×3 (04:07→16:26)
[2018-10-18] MEDS: ACETAMINOPHEN 325 MG TABLET PO PRN ×3 (04:07→16:25)
[2018-10-18 08:00] VITALS: BP 132/90
[2018-10-18] MEDS: CYANOCOBALAMIN 1,000 MCG TABLET PO SCH (08:07)
[2018-10-18] MEDS: GABAPENTIN 400 MG CAPSULE PO SCH ×3 (08:07→17:03)
[2018-10-18] MEDS: CHOLECALCIFEROL 1,000 UNIT TABLET PO SCH (08:07)
[2018-10-18] MEDS: OLANZAPINE 5 MG TABLET PO SCH ×2 (08:08→17:03)
[2018-10-18] MEDS: CLONAZEPAM 0.5 MG TABLET PO SCH ×3 (08:08→17:03)
[2018-10-18] MEDS: CLOZAPINE 25 MG TABLET PO SCH ×3 (08:11→17:04)
--- NOTE | 2018-10-18 10:06 | NUR ---
GPS: Nursing Notes: Thought Disorder: Patient is awake and responding to his name, poor anger management, slamming the bathroom door, loud and angry affect, "Get the fuck away.. I am going to piss..", argumentative with staff, verbal abusive, threatening staff with his paper bag, trying to hit staff with his bag, redirected and reoriented to reality, came out of the bathroom and sit on his bed, verbally threatening staff, but he is forgetful at times, disoriented to time, believes that he is here only 2 days, continue with 1:1 sitter for safety, continue with treatment plan.
[2018-10-18 10:30] VITALS: BP 136/76
--- NOTE | 2018-10-18 12:05 | NUR ---
Discharge planning: soaker soda worker called for second time to try and speak with patient's cousin, Karyna Pina [[phone]] regarding discharge planning. Karyna did not answer, so a voicemail was left requesting return phone call. soaker soda worker will continue to try and make contact with Karyna.
[2018-10-18 16:04] VITALS: BP 150/99
--- NOTE | 2018-10-18 16:06 | NUR ---
GPS: Nursing Notes: Thought Disorder: Patient is awake and responding to his name, poor impulse control, pacing around the unit, gets easily irritable when redirected, hyperverbal and angry affect, restless at times, redirected, but resistant with nursing care, paranoid behavior at times, believes that we are trying to poison him, believes that he is in penitentiary, redirected and reoriented to reality during shift, episodes of trying to into nursing station, overly demanding at times, unkempt appearance, unable to formulate a viable plan for self care, constantly talking, episodes of threatening and verbal abusive toward peers and staff, continue with 1:1 sitter for safety, continue with treatment plan.
[2018-10-18] MEDS: PANTOPRAZOLE SODIUM 40 MG TABLET.DR PO SCH (17:04)
--- NOTE | 2018-10-18 18:20 | NUR ---
Pt kept on requesting for his chart to be copied and to receive a full copy of it. Pt is anxious and frequently asks for his anti anxiety medications, educated pt that medications are scheduled and timed. In the morning, pt appeared to try to take advances; pt tried to reach for his bedside table while nurse standing and accidentally almost reach for nurses' behind. Reminded pt to be aware of his actions. Sitter was at bedside.
[2018-10-18] MEDS: MAG HYDROX/AL HYDROX/SIMETH 30 ML LIQUID UDC PO PRN (19:49)
[2018-10-18 19:51] VITALS: BP 148/96
[2018-10-18] MEDS: CLOZAPINE 100 MG TABLET PO SCH (20:07)
[2018-10-18] MEDS: GABAPENTIN 100 MG CAPSULE PO SCH (20:08)
--- NOTE | 2018-10-18 22:00 | NUR ---
RECEIVED PATIENT IN BED WITH 1;1 SITTER FOR SAFETY.INITIAL INTERACTION WITH HIM SAW HIS WORDS APPEAR GABLED BUT LATER HE CAME OUT WITH SITTER TO REQUEST VARIOUS MEDS AND WAS BRIEFLY IRRITABLE WHEN REQUESTS WAS NOT IMMEDIATELY MET.HOWEVER TOOK HIS MEDS WITH NO ADVERSE REACTION SEEN. APPEARS NEEDY AND WITHDRAWN. WILL CONTINUE TO MONITOR.
[2018-10-19] MEDS: ACETAMINOPHEN 325 MG TABLET PO PRN ×4 (02:45→21:17)
--- NOTE | 2018-10-19 06:59 | NUR ---
SLEPT FOR APPROX 8;15HRS
[2018-10-19] MEDS: LORAZEPAM 1 MG TABLET PO PRN ×3 (07:15→20:40)
[2018-10-19 07:30] VITALS: BP 143/93
[2018-10-19] MEDS: CLONAZEPAM 0.5 MG TABLET PO SCH ×3 (08:06→17:05)
[2018-10-19] MEDS: CHOLECALCIFEROL 1,000 UNIT TABLET PO SCH (08:06)
[2018-10-19] MEDS: OLANZAPINE 5 MG TABLET PO SCH ×2 (08:06→17:06)
[2018-10-19] MEDS: CYANOCOBALAMIN 1,000 MCG TABLET PO SCH (08:07)
[2018-10-19] MEDS: GABAPENTIN 400 MG CAPSULE PO SCH ×3 (08:07→17:04)
[2018-10-19] MEDS: CLOZAPINE 25 MG TABLET PO SCH ×3 (08:08→17:04)
--- NOTE | 2018-10-19 13:38 | NUR ---
Laboratory Equipment Installer Supportive Counseling: SW met with patient on the unit. Patient expressed concern about his chart and the contents in it. Patient demonstrated paranoid ideations stating that we were "lying about what's in there." SW provided reassurance to the patient and ensured him that he has a right to his medical records post-discharge. SW also informed pt that he is welcome to participate in his treatment planning as well. Patient expressed relief and gratitude. ANIL will continue to be available to provide supportive counseling.
--- NOTE | 2018-10-19 14:46 | NUR ---
Firearms Report: Pension Administrator completed and submitted [employer] Firearms Report for 5250 GD certification.
[2018-10-19 15:34] VITALS: BP 130/86
--- NOTE | 2018-10-19 15:51 | NUR ---
ATIVAN ADMINISTERED FOR ANXIETY. CONTINUOUSLY PACING AROUND THE UNIT AND DIFFICULT TO REDIRECT.
--- NOTE | 2018-10-19 16:18 | NUR ---
GPS: Nursing Notes: Thought Disorder: Patient is awake and responding to his name, hyperverbal, constantly talking, anxious affect, poor impulse control, gets easily irritable when redirected, episode of screaming at peer for touching his paper bag, poor anger management, redirected and reoriented during shift, setting limits, but continue to be argumentative, believes that we are lying about him, unkempt appearance, pacing around the unit with a paper bag, sexually inappropriate commands to female staff at times, redirected, but continue to be argumentative, unable to formulate a viable plan for self care, continue with 1:1 sitter for safety, episodes fo trying to get into other patient's room, overly demanding, continue with treatment plan.
[2018-10-19] MEDS: PANTOPRAZOLE SODIUM 40 MG TABLET.DR PO SCH (17:05)
[2018-10-19] MEDS: BENZTROPINE MESYLATE 1 MG TABLET PO SCH (17:35)
[2018-10-19 20:00] VITALS: BP 121/86
[2018-10-19] MEDS: CLOZAPINE 100 MG TABLET PO SCH (20:09)
[2018-10-19] MEDS: GABAPENTIN 100 MG CAPSULE PO SCH (20:09)
[2018-10-19] MEDS: TEMAZEPAM 15 MG CAPSULE PO PRN (21:32)
--- NOTE | 2018-10-20 06:24 | NUR ---
INITIALLY, PATIENT WAS AGITATED AND RESTLESS. PATIENT REQUEST SLEEPING PILL ALONG WITH ACETAMINOPHEN FOR PAIN. PATIENT TOOK ALL MEDICATIONS BUT NOT COMPLIANT WITH MEDICAL CARE. PATIENT NEEDS REDIRECTING. PATIENT RESTED THROUGH THE NIGHT. WILL CONTINUE TO MONITOR AND ENDORSE PLAN OF CARE TO NEXT SHIFT
[2018-10-20] MEDS: CLOZAPINE 25 MG TABLET PO SCH ×3 (08:40→17:48)
[2018-10-20] MEDS: GABAPENTIN 400 MG CAPSULE PO SCH ×3 (08:41→17:42)
[2018-10-20] MEDS: OLANZAPINE 5 MG TABLET PO SCH ×2 (08:41→17:51)
[2018-10-20] MEDS: CYANOCOBALAMIN 1,000 MCG TABLET PO SCH (08:42)
[2018-10-20] MEDS: CLONAZEPAM 0.5 MG TABLET PO SCH ×3 (08:42→17:42)
[2018-10-20] MEDS: LIDOCAINE 5% PATCH TD SCH (08:42)
[2018-10-20] MEDS: CHOLECALCIFEROL 1,000 UNIT TABLET PO SCH (08:42)
[2018-10-20] MEDS: BENZTROPINE MESYLATE 1 MG TABLET PO SCH ×2 (08:42→17:42)
[2018-10-20] MEDS: ACETAMINOPHEN 325 MG TABLET PO PRN (08:49)
[2018-10-20] MEDS: LORAZEPAM 1 MG TABLET PO PRN (09:52)
[2018-10-20 17:00] VITALS: BP 127/98
[2018-10-20] MEDS: PANTOPRAZOLE SODIUM 40 MG TABLET.DR PO SCH (17:51)
[2018-10-20 20:00] VITALS: BP 130/93
[2018-10-20] MEDS: GABAPENTIN 100 MG CAPSULE PO SCH (20:31)
[2018-10-20] MEDS: CLOZAPINE 100 MG TABLET PO SCH (20:31)
[2018-10-20] MEDS: TEMAZEPAM 15 MG CAPSULE PO PRN (21:21)
[2018-10-21] MEDS: LORAZEPAM 1 MG TABLET PO PRN (03:42)
[2018-10-21 07:30] VITALS: BP 137/95
[2018-10-21] MEDS: LIDOCAINE 5% PATCH TD SCH (09:00)
[2018-10-21] MEDS: CHOLECALCIFEROL 1,000 UNIT TABLET PO SCH (09:18)
[2018-10-21] MEDS: OLANZAPINE 5 MG TABLET PO SCH ×2 (09:18→17:56)
[2018-10-21] MEDS: CYANOCOBALAMIN 1,000 MCG TABLET PO SCH (09:18)
[2018-10-21] MEDS: CLOZAPINE 25 MG TABLET PO SCH ×3 (09:18→17:57)
[2018-10-21] MEDS: BENZTROPINE MESYLATE 1 MG TABLET PO SCH ×2 (09:19→17:56)
[2018-10-21] MEDS: CLONAZEPAM 0.5 MG TABLET PO SCH ×3 (09:20→17:56)
[2018-10-21] MEDS: ACETAMINOPHEN 325 MG TABLET PO PRN (09:25)
[2018-10-21] MEDS: GABAPENTIN 400 MG CAPSULE PO SCH ×3 (09:25→17:56)
[2018-10-21] MEDS ORDERED: MAGNESIUM HYDROXIDE 30 ML LIQUID UDC PO PRN ×2 (13:00→13:15)
[2018-10-21 16:00] VITALS: BP 136/95
[2018-10-21] MEDS: PANTOPRAZOLE SODIUM 40 MG TABLET.DR PO SCH (18:01)
[2018-10-21 20:10] VITALS: BP 142/81
[2018-10-21] MEDS: GABAPENTIN 100 MG CAPSULE PO SCH (20:40)
[2018-10-21] MEDS: CLOZAPINE 100 MG TABLET PO SCH (20:40)
--- NOTE | 2018-10-21 20:53 | NUR ---
Received pt walking in the hallway. AAO x3. No acute distress noted. C/o back pain. Meds given as ordered. Pt needy, asking for one thing after another. Pt redirected. Denies SI, hallucination, delusion. Safety measures maintained. Will continue to monitor.
[2018-10-21] MEDS: TEMAZEPAM 15 MG CAPSULE PO PRN (23:38)
[2018-10-22] MEDS: ACETAMINOPHEN 325 MG TABLET PO PRN ×2 (07:03→08:21)
[2018-10-22 07:30] VITALS: BP 136/98
[2018-10-22] MEDS: GABAPENTIN 400 MG CAPSULE PO SCH ×3 (08:11→16:13)
[2018-10-22] MEDS: BENZTROPINE MESYLATE 1 MG TABLET PO SCH ×2 (08:11→16:13)
[2018-10-22] MEDS: OLANZAPINE 5 MG TABLET PO SCH ×2 (08:11→16:13)
[2018-10-22] MEDS: CLONAZEPAM 0.5 MG TABLET PO SCH ×3 (08:11→16:13)
[2018-10-22] MEDS: LORAZEPAM 1 MG TABLET PO PRN ×3 (08:11→16:48)
[2018-10-22] MEDS: CHOLECALCIFEROL 1,000 UNIT TABLET PO SCH (08:11)
[2018-10-22] MEDS: CYANOCOBALAMIN 1,000 MCG TABLET PO SCH (08:11)
[2018-10-22] MEDS: LIDOCAINE 5% PATCH TD SCH ×2 (08:14→09:00)
[2018-10-22] MEDS: CLOZAPINE 25 MG TABLET PO SCH ×3 (08:15→16:16)
[2018-10-22] MEDS: IBUPROFEN 600 MG TABLET PO PRN (13:51)
[2018-10-22 15:07] VITALS: BP 131/94
[2018-10-22] MEDS: PANTOPRAZOLE SODIUM 40 MG TABLET.DR PO SCH (16:13)
--- NOTE | 2018-10-22 16:46 | NUR ---
C/O BEING ANXIOUS MEDICATED WITH ATIVAN X3 TODAY .LAST DOSE GIVEN AT 1645
[2018-10-22] MEDS: GABAPENTIN 100 MG CAPSULE PO SCH (20:22)
[2018-10-22] MEDS: CLOZAPINE 100 MG TABLET PO SCH (20:24)
[2018-10-22 20:33] VITALS: BP 135/95
[2018-10-23] MEDS: IBUPROFEN 600 MG TABLET PO PRN ×2 (02:26→16:58)
[2018-10-23] MEDS: LORAZEPAM 1 MG TABLET PO PRN ×3 (02:26→16:17)
[2018-10-23] MEDS: ACETAMINOPHEN 325 MG TABLET PO PRN ×2 (06:25→12:29)
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
[2018-10-23 07:30] VITALS: BP 143/96
[2018-10-23] MEDS: CLOZAPINE 25 MG TABLET PO SCH ×3 (08:43→16:58)
[2018-10-23] MEDS: BENZTROPINE MESYLATE 1 MG TABLET PO SCH ×2 (08:43→16:58)
[2018-10-23] MEDS: OLANZAPINE 5 MG TABLET PO SCH ×2 (08:44→16:58)
[2018-10-23] MEDS: CLONAZEPAM 0.5 MG TABLET PO SCH ×3 (08:44→16:58)
[2018-10-23] MEDS: CHOLECALCIFEROL 1,000 UNIT TABLET PO SCH (08:44)
[2018-10-23] MEDS: GABAPENTIN 400 MG CAPSULE PO SCH ×3 (08:44→16:58)
[2018-10-23] MEDS: CYANOCOBALAMIN 1,000 MCG TABLET PO SCH (08:44)
[2018-10-23] MEDS: LIDOCAINE 5% PATCH TD SCH (08:45)
--- NOTE | 2018-10-23 16:35 | NUR ---
GPS: Nursing Notes: Thought Disorder: Patient is awake and responding to his name, poor impulse control, resistant with nursing care, intrusive by getting into other patient's room , redirected, but continue to be argumentative, verbal abusive at times with female nurses, "She is a dog nurse to me... Everybody is against me because I am black..", setting limits, but continue to be intrusive, gets easily irritable when redirected, loud, pressured, and angry speech, standing on top of his bed, when redirected, stated, "Why are you in my case all the time.." when asked why he is standing on his bed, stated, "It is not your business..", setting limits, but continue to be argumentative, verbal abusive, and threatening female staff at times, continue to monitor for safety, unable to formulate a viable plan for self care, continue with treatment plan.
[2018-10-23 16:50] VITALS: BP 108/76
[2018-10-23] MEDS: PANTOPRAZOLE SODIUM 40 MG TABLET.DR PO SCH (16:58)
[2018-10-23 20:00] VITALS: BP 133/91
[2018-10-23] MEDS: CLOZAPINE 100 MG TABLET PO SCH (20:02)
[2018-10-23] MEDS ORDERED: GABAPENTIN 100 MG CAPSULE ONE (20:08)
[2018-10-23] MEDS ORDERED: GABAPENTIN 300 MG CAPSULE ONE (20:08)
[2018-10-23] MEDS: GABAPENTIN 100 MG CAPSULE PO SCH (20:44)
[2018-10-23] MEDS: TEMAZEPAM 15 MG CAPSULE PO PRN (22:38)
--- NOTE | 2018-10-24 06:27 | NUR ---
GPS: Remain hyperverbal, constantly talking, anxious affect, poor impulse control, gets easily irritable when redirected. keep coming to nursing station for small stuff. poor anger management, redirected and reoriented during shift, setting limits, but continue to be argumentative, believes that we are lying about him, unkempt appearance, pacing around the unit most of the time while awake. Redirected, but continue to be argumentative, unable to formulate a viable plan for self care, SLEPT 6 HRS through the night. continue with treatment plan.
[2018-10-24] MEDS: LORAZEPAM 1 MG TABLET PO PRN ×4 (07:16→20:54)
[2018-10-24] MEDS: ACETAMINOPHEN 325 MG TABLET PO PRN ×3 (07:16→20:31)
[2018-10-24 07:30] VITALS: BP 132/95
[2018-10-24] MEDS: GABAPENTIN 400 MG CAPSULE PO SCH ×3 (08:47→16:57)
[2018-10-24] MEDS: CYANOCOBALAMIN 1,000 MCG TABLET PO SCH (08:47)
[2018-10-24] MEDS: CLOZAPINE 25 MG TABLET PO SCH ×3 (08:48→16:57)
[2018-10-24] MEDS: LIDOCAINE 5% PATCH TD SCH (08:48)
[2018-10-24] MEDS: CHOLECALCIFEROL 1,000 UNIT TABLET PO SCH (08:48)
[2018-10-24] MEDS: CLONAZEPAM 0.5 MG TABLET PO SCH ×3 (08:48→16:57)
[2018-10-24] MEDS: OLANZAPINE 5 MG TABLET PO SCH ×2 (08:48→16:57)
[2018-10-24] MEDS: BENZTROPINE MESYLATE 1 MG TABLET PO SCH ×2 (08:48→16:57)
[2018-10-24] MEDS: IBUPROFEN 600 MG TABLET PO PRN (12:03)
[2018-10-24 16:52] VITALS: BP 123/75
[2018-10-24] MEDS: PANTOPRAZOLE SODIUM 40 MG TABLET.DR PO SCH (16:57)
[2018-10-24 20:22] VITALS: BP 130/91
[2018-10-24] MEDS: CLOZAPINE 100 MG TABLET PO SCH (20:22)
[2018-10-24] MEDS: GABAPENTIN 100 MG CAPSULE PO SCH (20:23)
[2018-10-24] MEDS: TEMAZEPAM 15 MG CAPSULE PO PRN (22:20)
[2018-10-25] MEDS: IBUPROFEN 600 MG TABLET PO PRN ×2 (01:00→07:19)
[2018-10-25] MEDS: LORAZEPAM 1 MG TABLET PO PRN ×2 (02:30→07:19)
[2018-10-25] MEDS: ACETAMINOPHEN 325 MG TABLET PO PRN (04:14)
--- NOTE | 2018-10-25 07:10 | NUR ---
PT SLEPT INTERMITTENTLY. PT SHOWS NO ACUTE DISTRESS. PT INTRUSIVE AND NEEDY. PRESCRIBED MEDICATION GIVEN AND PT TOLERATED IT WELL. PT GIVEN ATIVAN AT 2045H, 0230H FOR AGITATION. PT TOLERATED IT WELL. SAFETY AND COMFORT PROVIDED. ALL NEEDS ARE LEFT. WILL ENDORSE ACCORDINGLY TO INCOMING NURSE FOR CONTINUITY OF CARE.
[2018-10-25 07:30] VITALS: BP 135/95
[2018-10-25] MEDS: OLANZAPINE 5 MG TABLET PO SCH (08:29)
[2018-10-25] MEDS: CLONAZEPAM 0.5 MG TABLET PO SCH ×2 (08:29→12:08)
[2018-10-25] MEDS: GABAPENTIN 400 MG CAPSULE PO SCH ×2 (08:29→12:08)
[2018-10-25] MEDS: CHOLECALCIFEROL 1,000 UNIT TABLET PO SCH (08:29)
[2018-10-25] MEDS: CLOZAPINE 25 MG TABLET PO SCH ×2 (08:29→12:08)
[2018-10-25] MEDS: CYANOCOBALAMIN 1,000 MCG TABLET PO SCH (08:29)
[2018-10-25] MEDS: BENZTROPINE MESYLATE 1 MG TABLET PO SCH (08:29)
[2018-10-25] MEDS: LIDOCAINE 5% PATCH TD SCH (08:30)
--- NOTE | 2018-10-25 08:52 | NUR ---
DC Note: Patient will be discharged back to [facility] [[address] [place] [address]; ] via ambulance at 11am. Please arrange an ambulance for this patient. Spoke with CJ at the facility who states they are ready to accept the patient today. Left a message for patients cousinKaryna ([phone]) to alert about patients discharge. Patient is aware and agreeable with discharge plan. Patients mood seems anxious upon discharge with a congruent affect. Patient will continue to follow-up at the facility with Dr. Saenz (Manager Systems) and Dr. Callahan (Psychiatrist). Patient was provided with outpatient mental health referrals to [facility] , [facility] , and the [facility] .
--- NOTE | 2018-10-25 12:15 | NUR ---
GPS: Nursing Notes: Discharge Notes: Patient is awake and responding to his name, cooperative with nursing care, compliant with his medications, following staff directions, denies any SI/HI, denies any AH/VH, denies any pain or discomfort, denies any SOB, discharge to [facility] at [address] [place] [id number] , report given to Viv, RN supervisor irrigation, took all his belongings with him, transported to facility via ambulance. Patient will continue to follow-up at the facility with Dr. Saenz ([facility] Field Worker) and Dr. Callahan (Psychiatrist). Patient was provided with outpatient mental health referrals to [facility] , [facility] , and the [facility] .
== END 2018-10-25 12:15 | DRG 885 ==
LOC: ER 21:05 → GPS 23:30
PROVIDERS: ADMIT Psychiatry & Neurology Psychosomatic Medicine; ATTEND Nurse Practitioner Acute Care
DX: F25.0 Schizoaffective disorder, bipolar type (principal); G89.29 Other chronic pain; M54.9 Dorsalgia, unspecified; E78.00 Pure hypercholesterolemia, unspecified; R73.9 Hyperglycemia, unspecified; G24.01 Drug induced subacute dyskinesia
CPT/HCPCS: 36415; 70030-TC; 71045; 80307; 84443; 85025; 85730; 93005; A4663; G0480; G0480-TC; J2060; J2358